=== PATIENT | female | born 1980 | race Caucasian/White ===

== ENCOUNTER 2020-09-05 09:39 | Day surgery (SDC) | payer BC ==
[2020-09-04 08:38] VITALS: BMI 21.6
[~2020-09-05 09:39] MED LIST: LACTATED RINGERS 1,000 ML IV SCH
[2020-09-05 10:18] VITALS: TEMP 97.4
[2020-09-05] MEDS ORDERED: PROPOFOL 10 MG/ML 20 ML VIAL IV ONE (11:07)
--- NOTE | 2020-09-05 11:12 | P.GSHP ---
History of Present Illness H&P Date: 09/05/20 Chief Complaint: Rectal bleeding 39-year-old female known to our service. Was seen in the office in April. Patient complaining of perirectal pain and hemorrhoids. Says she has a hemorrhoid that comes out during bowel activity on the left-hand side. Spontaneously reduces after some time. She has had hemorrhoidal banding before. Past Medical History Additional Past Medical History / Comment(s): hx polyps,hemorrhoids(hemorrhoid banding if office) History of Any Multi-Drug Resistant Organisms: None Reported Past Surgical History: Section, Tubal Ligation, Uterine Ablation Additional Past Surgical History / Comment(s): sinus polyps removed and deviated septum repair,"not sure if fallopian tubes removed or not" Past Anesthesia/Blood Transfusion Reactions: No Reported Reaction Smoking Status: Current some day smoker, Former smoker - Past Family History Mother Family Medical History: No Reported History Medications and Allergies Home Medications Medication Instructions Recorded Confirmed Type ALPRAZolam [Xanax] 0.5 mg PO Q8HR PRN 09/04/20 09/04/20 History Fexofenadine/Pseudoephedrine 1 each PO DAILY 09/04/20 09/04/20 History [Goldie-D 24 Hour Tablet] Inulin/Chromium Picolinate [Fiber 3 each PO DAILY 09/04/20 09/04/20 History Gummies Chew] Venlafaxine HCl [Effexor XR] 37.5 mg PO QAM 09/04/20 09/04/20 History Allergies Allergy/AdvReac Type Severity Reaction Status Date / Time adhesive Allergy Rash/Hives Verified 09/05/20 10:09 nickel Allergy Rash/Hives Verified 09/05/20 10:09 Surgical - Exam Vital Signs Temp Pulse Resp Pulse Ox 97.4 F L 94 17 100 09/05/20 10:17 09/05/20 10:17 09/05/20 10:17 09/05/20 10:17 Physical exam: General: Well-developed, well-nourished HEENT: Normocephalic, sclerae nonicteric Abdomen: Nontender, nondistended Extremities: No edema Neuro: Alert and oriented Assessment and Plan (1) Rectal bleeding Narrative/Plan: Will proceed with colonoscopy Current Visit: Yes Status: Acute Code(s): K62.5 - HEMORRHAGE OF ANUS AND RECTUM SNOMED Code(s): 51969332
--- NOTE | 2020-09-05 11:32 | P.PCN ---
Date of Procedure: 09/05/20 Procedure(s) Performed: PREOPERATIVE DIAGNOSIS: Colon cancer screening POSTOPERATIVE DIAGNOSIS: Normal exam PROCEDURE: Colonoscopy, anoscopy ANESTHESIA: MAC SURGEON: Blue Antonio M.D. SPECIMENS: None ENDOSCOPIC PROCEDURE: The patient was placed on the endoscopy table in the left decubitus position. The Olympus colonoscope was inserted into the anus and passed under direct visualization to the base of the cecum. The appendiceal orifice was visualized. From that point the scope was slowly withdrawn inspecting all surfaces carefully. There were no neoplastic inflammatory or polypoid lesions throughout the cecum, ascending, transverse, descending, sigmoid and rectum. There was no visible diverticulosis noted. Digital rectal examination was normal. The anoscope was used as well. I could not visualize any significant hemorrhoidal disease or fissure. The patient was taken to the recovery room in stable condition per anesthesia guidelines. RECOMMENDATIONS: Resume diet. Increase fiber. Monitor symptoms.
[2020-09-05 11:39] VITALS: RESP 16
[2020-09-05 12:06] VITALS: BP 149/97; PULSE 93
== END 2020-09-05 12:23 | disposition home or self-care (01) ==
LOC: ORWHC2ENDO 09:39
PROVIDERS: ATTEND Surgery
DX: K62.5 Hemorrhage of anus and rectum (principal); Z98.891 History of uterine scar from previous surgery; Z98.890 Other specified postprocedural states; Z98.51 Tubal ligation status; Z79.899 Other long term (current) drug therapy; Z91.09 Other allergy status, other than to drugs and biological substances; F17.200 Nicotine dependence, unspecified, uncomplicated; F32.9 Major depressive disorder, single episode, unspecified; F41.9 Anxiety disorder, unspecified
CPT/HCPCS: 45378; 81025; J2704; 46600